=== PATIENT | female | born 1970 | race Caucasian/White ===

== ENCOUNTER 2018-07-04 16:01 | Inpatient (IN) | payer OTHER, SELFPAY ==
[~2018-07-04] VITALS: Ht 175.3 cm; Wt 86.2 kg
[2018-07-04 19:24] LABS: CHLORIDE 106 mEq/L (98-107); HEMATOCRIT. 39.1 % (36.0-48.0); HEMOGLOBIN. 12.8 g/dL (12.0-16.0); MEAN CORPUSCULAR HEMOGLOBIN 28.3 pg (28.0-32.0); MEAN CORPUSCULAR VOLUME 86.8 fL (81.0-99.0); MEAN PLATELET VOLUME 9.1 fl (7.4-10.4); PLATELET 227 x1000/uL (130-400); RED BLOOD CELL COUNT 4.51 mill/uL (4.2-5.4); RED CELL DISTRIBUTION WIDTH 13.6 % (11.6-14.6)
[2018-07-04 19:29] LABS: ETHANOL BLOOD < 10 mg/dL
[2018-07-04 20:09] LABS: PLATELET ESTIMATE NORMAL
[2018-07-04 23:41] LABS: CLARITY URINE CLOUDY (CLEAR); COLOR URINE YELLOW (YELLOW); KETONES URINE 3+ (NEGATIVE); LEUKOCYTE ESTERASE URINE TRACE (NEGATIVE); NITRITE URINE NEGATIVE (NEGATIVE); OCCULT BLOOD URINE NEGATIVE (NEGATIVE); PH URINE 5.5 (4.5-8.0); PROTEIN URINE NEGATIVE (NEGATIVE); SPECIFIC GRAVITY URINE 1.022 (1.005-1.030)
[2018-07-05] MEDS ORDERED: CEFTRIAXONE SODIUM 1 G/VIAL IM ONE (12:30)
[2018-07-05] MEDS ORDERED: ONDANSETRON HCL 4MG/2ML INJ IV PRN (13:45)
[2018-07-05] MEDS ORDERED: KETOROLAC 15MG/ML VIAL IV PRN (13:45)
[2018-07-05] MEDS ORDERED: DOCUSATE SODIUM 100MG CAPSULE PO PRN (13:45)
[2018-07-05] MEDS ORDERED: ZOLPIDEM TARTRATE 5MG TABLET PO PRN (13:45)
[2018-07-05] MEDS ORDERED: IPRATROPIUM/ALBUTEROL 0.5-3(2.5)MG/3ML NEB INH PRN (13:45)
[2018-07-05] MEDS ORDERED: LORAZEPAM 0.5MG TABLET PO PRN (13:45)
[2018-07-05] MEDS ORDERED: CLONIDINE 0.1MG TABLET PO PRN (13:45)
[2018-07-05] MEDS ORDERED: DEXTROSE 50% WATER 50ML SYRINGE IV PRN (13:45)
[2018-07-05] MEDS ORDERED: MAGNESIUM/ALUMINUM HYDROXIDE/SIMETHICONE 30ML UDC PO PRN (13:45)
[2018-07-05] MEDS ORDERED: ACETAMINOPHEN 325MG TABLET PO PRN (13:45)
[2018-07-05] MEDS ORDERED: GUAIFENESIN 200MG/10ML SUGAR FREE UDC PO PRN (13:45)
[2018-07-05 15:30] VITALS: BP 147/77
[2018-07-05 17:38] LABS: BASOPHILS % 0.3 % (0.0-2.0); EOSINOPHILS % 0.1 % (0.0-5.0); HEMATOCRIT. 35.7 % (36.0-48.0); HEMOGLOBIN. 11.6 g/dL (12.0-16.0); LYMPHOCYTES % 13.7 % (20.0-50.0); MEAN CORPUSCULAR HEMOGLOBIN 27.5 pg (28.0-32.0); MEAN CORPUSCULAR VOLUME 85.1 fL (81.0-99.0); MEAN PLATELET VOLUME 8.8 fl (7.4-10.4); MONOCYTES % 6.8 % (2.0-8.0); NEUTROPHILS % 79.1 % (40.0-76.0); PLATELET 188 x1000/uL (130-400); RED CELL DISTRIBUTION WIDTH 13.8 % (11.6-14.6)
[2018-07-05] MEDS ORDERED: LEVOFLOXACIN 500MG PREMIX 100 ML IV SCH ×2 (18:00→21:00)
[2018-07-05] MEDS ORDERED: FURO-152 MT (18:49)
[2018-07-05 20:00] VITALS: BP 134/66
[2018-07-05] MEDS: BLOOD SUGAR DIAGNOSTIC STRIP TEST SCH (20:03)
[2018-07-05] MEDS: ENOXAPARIN 30MG/0.3ML SYR SUBCUT SCH (20:04)
[2018-07-05] MEDS: FAMOTIDINE 20MG TABLET PO SCH (20:05)
[2018-07-05] MEDS: SODIUM CHLORIDE 0.9% 1,000 ML IV SCH (20:46)
[2018-07-05] MEDS: INSULIN LISPRO 100 UNITS/ML SUBCUT SCH (21:00)
[2018-07-06] VITALS: BP 124/61
[2018-07-06 04:00] VITALS: BP 146/76
[2018-07-06] MEDS: SODIUM CHLORIDE 0.9% 1,000 ML IV SCH (05:36)
[2018-07-06] MEDS: BLOOD SUGAR DIAGNOSTIC STRIP TEST SCH ×2 (06:10→12:48)
[2018-07-06] MEDS: INSULIN LISPRO 100 UNITS/ML SUBCUT SCH ×2 (06:41→12:48)
[2018-07-06 08:00] VITALS: BP 125/68
[2018-07-06] MEDS: ENOXAPARIN 30MG/0.3ML SYR SUBCUT SCH (09:04)
[2018-07-06] MEDS: FAMOTIDINE 20MG TABLET PO SCH (09:04)
[2018-07-06 12:00] VITALS: BP 155/83
[2018-07-06] MEDS ORDERED: CEFTRIAXONE 1 G PREMIX 50 ML IV SCH (13:00)
[2018-07-06 13:32] VITALS: BP 155/83
== END 2018-07-06 17:45 | disposition home or self-care (01) | DRG 463 ==
LOC: ER 16:01 → 6EST 07-05 11:31 → EDBEDREQ 07-05 11:42 → ENRESERV 07-05 13:25
PROVIDERS: ADMIT Internal Medicine; ATTEND Internal Medicine
DX: N39.0 Urinary tract infection, site not specified (principal); E11.9 Type 2 diabetes mellitus without complications; Z59.0 Homelessness; M19.90 Unspecified osteoarthritis, unspecified site; I10 Essential (primary) hypertension; Z85.9 Personal history of malignant neoplasm, unspecified
CPT/HCPCS: 36415; 71045; 80061; 82962; 83036; 93005; 93970; 96365; 96372; 96375; 99285; A6261; J0696; J1650; J1956; J7030

== ENCOUNTER 2018-07-06 23:21 | Emergency (ER) | payer SELFPAY ==
[~2018-07-06] VITALS: Ht 175.3 cm; Wt 82.0 kg
[~2018-07-06 23:21] MED LIST: FURO-152 MT
== END 2018-07-07 05:00 | disposition left against medical advice (07) ==
LOC: ER 23:21
DX: Z53.21 Procedure and treatment not carried out due to patient leaving prior to being seen by health care provider (principal)